=== PATIENT | female | born 1965 | race African-American/Black ===

== ENCOUNTER 2017-02-27 14:19 | Emergency (ER) | payer MEDICAID, OTHER ==
[~2017-02-27] VITALS: Ht 177.8 cm; Wt 77.3 kg
[~2017-02-27 14:19] MED LIST: CIPR-278 PO
[2017-02-27 16:12] VITALS: BP 128/88
== END 2017-02-27 16:27 | disposition home or self-care (01) ==
LOC: EMS 14:22
DX: J06.9 Acute upper respiratory infection, unspecified (principal); J40 Bronchitis, not specified as acute or chronic; I10 Essential (primary) hypertension; F17.210 Nicotine dependence, cigarettes, uncomplicated
CPT/HCPCS: 99283; 99406